=== PATIENT | female | born 1995 | race Caucasian/White ===

== ENCOUNTER 2017-01-22 23:31 | Emergency (ER) | payer OTHER ==
[~2017-01-22] VITALS: Ht 154.9 cm; Wt 65.1 kg
[2017-01-22 23:38] VITALS: TEMP 36.9; Ht 154.9 cm; Wt 65.1 kg
[2017-01-22] MEDS ORDERED: SODIUM CHLORIDE 0.9% 1000ML 1,000 ML IV STA (23:53)
[2017-01-22] MEDS ORDERED: SODIUM CHLORIDE 0.9% 1000ML 1,000 ML IV ONE (23:53)
--- NOTE | 2017-01-23 00:04 | EMERGENCY ROOM VISIT NOTE ---
History Report prepared by Yovana: Rob Hernandez Under the Supervision of: Dr. Guillaume Polanco M.D. First contact with patient: 23:44 Chief Complaint: OVERDOSE (ACCIDENTAL) Stated Complaint: TOOK TOO MUCH BUROPION,CHEST PAIN History of Present Illness The patient is a 21 year old female who presents to the Emergency Room with complaints of an accidental overdose that occurred about 3 days ago. The patient was drinking alcohol with her friends when she accidentally took 6 Bupropion 300 mg. Today, she started having a significant amount of chest pain. So, she called Poison Control and was told to come to the Emergency Room. She rates her pain a 5/10 in severity. She states it feels pressure like. She states that she was not trying to kill herself, she was just "drunk and not thinking." She took Ibuprofen the next day and she did not any other drugs or medications. The patient vomited yesterday, but her abdomen feels fine today. She takes Trazodone as needed, Spironolactone for high testosterone, and Bupropion for anxiety and Depression. The patient has cut herself in the past, but has not tried to hurt herself other than that. She has a therapist and states that it is helping. There is no chance she is . She denies any recent trauma. Source of History: patient, friend Onset: 3 days ago Position: other (global) Symptom Intensity: overdose Quality: other (accidental) Timing: constant Associated Symptoms: + chest pain, No abdominal pain, No vomiting Review of Systems See HPI for pertinent positives & negatives. A total of 10 systems reviewed and were otherwise negative. Past Medical & Surgical Medical Problems: (1) Anxiety (2) Depression Old medical records were reviewed. Nurse's notes were reviewed and I agree with. Depression. Denies history of suicidal ideations or attempt Family History Patient reports no known family medical history. Social History Smoking Status: Never Smoker Smokeless Tobacco Use: No Alcohol Use: occasionally Drug Use: none Marital Status: single Occupation Status: student Current/Historical Medications Scheduled Bupropion (Wellbutrin-Xl), 300 MG PO DAILY Spironolactone (Aldactone), 50 MG PO DAILY Scheduled PRN Trazodone Hcl (Trazodone), 50 MG PO HS PRN for Sleep Allergies Coded Allergies: No Known Allergies (Unverified , 01/22/17) Physical Exam Vital Signs Date Time Temp Pulse Resp B/P Pulse Ox O2 Delivery O2 Flow Rate FiO2 01/23/17 03:08 72 01/23/17 03:06 93 18 123/79 98 Room Air 01/23/17 01:06 69 18 120/74 95 Room Air 01/22/17 23:54 79 01/22/17 23:38 36.9 88 20 144/94 95 Room Air Physical Exam General: Non ill appearing young female. Well developed well nourished in no acute distress, breathing comfortably on room air. Normal speech HEENT: Normal cephalic atraumatic. Pupils are equal round and reactive to light. Extraocular movements are intact. Oropharynx is pink with moist mucous membranes. No swelling of the mouth lips or tongue. Neck: Supple with a midline trachea. No meningeal signs or stiffness, no JVD or bruits. No Stridor. Chest: Clear to auscultation bilaterally. No wheezes or rhonchi. No increased work of breathing. Heart: regular rate and rhythm. Abdomen: Soft nontender, nondistended without rebound guarding or rigidity. Extremities: No cyanosis clubbing or edema. No calf tenderness or assymetry Spine/Back. Non tender to palpation. No CVA tenderness Skin: Good turgor without rashes. Superficial cut on her left arm that is healed. Neurologic exam: Cranial nerves two through 12 are intact. Motor and sensation are intact and symmetrical throughout. Medical Decision & Procedures ER Provider Diagnostic Interpretation: Chest x-ray per my interpretation reveals no pneumothorax, failure, or infiltrate. Laboratory Results 01/22/17 23:56 Red Blood Count 4.49, Mean Corpuscular Volume 90.2, Mean Corpuscular Hemoglobin 32.3, Mean Corpuscular Hemoglobin Concent 35.8, Mean Platelet Volume 9.5, Neutrophils (%) (Auto) 61.2, Lymphocytes (%) (Auto) 26.6, Monocytes (%) (Auto) 10.0, Eosinophils (%) (Auto) 1.3, Basophils (%) (Auto) 0.3, Neutrophils # (Auto ) 5.86, Lymphocytes # (Auto) 2.55, Monocytes # (Auto) 0.96, Eosinophils # (Auto ) 0.12, Basophils # (Auto) 0.03 01/22/17 23:56 Test 01/22/17 23:56 01/23/17 00:03 01/23/17 00:04 01/23/17 00:17 White Blood Count 9.58 K/uL (4.8-10.8) Red Blood Count 4.49 M/uL (4.2-5.4) Hemoglobin 14.5 g/dL (12.0-16.0) Hematocrit 40.5 % (37-47) Mean Corpuscular Volume 90.2 fL (80-100) Mean Corpuscular Hemoglobin 32.3 pg (25-34) Mean Corpuscular Hemoglobin Concent 35.8 g/dl (32-36) Platelet Count 335 K/uL (130-400) Mean Platelet Volume 9.5 fL (7.4-10.4) Neutrophils (%) (Auto) 61.2 % Lymphocytes (%) (Auto) 26.6 % Monocytes (%) (Auto) 10.0 % Eosinophils (%) (Auto) 1.3 % Basophils (%) (Auto) 0.3 % Neutrophils # (Auto) 5.86 K/uL (1.4-6.5) Lymphocytes # (Auto) 2.55 K/uL (1.2-3.4) Monocytes # (Auto) 0.96 K/uL (0.11-0.59) Eosinophils # (Auto) 0.12 K/uL (0-0.5) Basophils # (Auto) 0.03 K/uL (0-0.2) RDW Standard Deviation 39.7 fL (36.4-46.3) RDW Coefficient of Variation 12.0 % (11.5-14.5) Immature Granulocyte % (Auto) 0.6 % Immature Granulocyte # (Auto) 0.06 K/uL (0.00-0.02) Prothrombin Time 10.5 SECONDS (9.0-12.0) Prothromb Time International Ratio 1.0 (0.9-1.1) Activated Partial Thromboplast Time 28.1 SECONDS (21.0-31.0) Partial Thromboplastin Ratio 1.1 Anion Gap 10.0 mmol/L (3-11) Est Creatinine Clear Calc Drug Dose 82.2 ml/min Estimated GFR () 100.6 Estimated GFR (Non- 86.8 BUN/Creatinine Ratio 18.2 (10-20) Calcium Level 9.0 mg/dl (8.5-10.1) Total Bilirubin 0.3 mg/dl (0.2-1) Direct Bilirubin < 0.1 mg/dl (0-0.2) Aspartate Amino Transf (AST/SGOT) 17 U/L (15-37) Alanine Aminotransferase (ALT/SGPT) 32 U/L (12-78) Alkaline Phosphatase 81 U/L (45-117) Total Protein 8.0 gm/dl (6.4-8.2) Albumin 4.2 gm/dl (3.4-5.0) Lipase 107 U/L (73-393) Thyroid Stimulating Hormone (TSH) 1.250 uIu/ml (0.300-4.500) Human Chorionic Gonadotropin, Qual NEG (NEG) Salicylates Level < 1.7 mg/dl (2.8-20) Acetaminophen Level < 2 ug/ml (10-30) Urine Opiates Screen NEG (NEG) Urine Methadone, Qualitative NEG (NEG) Urine Barbiturates NEG (NEG) Urine Phencyclidine (PCP) Level NEG (NEG) Ur Amphetamine/Methamphetamine NEG (NEG) MDMA (Ecstasy) Screen POS (NEG) Urine Benzodiazepines Screen NEG (NEG) Urine Cocaine Metabolite NEG (NEG) Urine Marijuana (THC) NEG (NEG) Bedside D-Dimer 153 ng/mlFEU (0-450) Bedside Troponin I 0.000 ng/ml (0-0.045) Ethyl Alcohol mg/dL < 3.0 mg/dl (0-3) Laboratory studies as stated above per my review. Medications Administered Medications (Trade) Dose Ordered Sig/Leonard Route Start Time Stop Time Status Last Admin Dose Admin Sodium Chloride 1,000 ml @ 999 mls/hr Q1H1M STAT IV 01/22/17 23:53 01/23/17 00:53 DC 01/23/17 00:09 999 MLS/HR Sodium Chloride (Nss 1000ml) 1,000 ml @ 150 mls/hr Q6H40M ONCE IV 01/22/17 23:53 01/23/17 04:26 DC 01/23/17 01:06 150 MLS/HR ECG Indication: chest pain Rate (beats per minute): 79 Rhythm: normal sinus Findings: no acute ischemic change, no ectopy, other (Normal intervals) ED Course 2344: Past medical records reviewed. The patient was evaluated in room A12, and a complete history and physical examination were performed. 2353: Sodium Chloride 1000 ml @ 150 mls/hr IV, Sodium Chloride 1000 ml @ 999 mls /hr IV 0320: I spoke with Raquel of Poison Control at this time. She agrees with the treatment plan to discharge the patient. 0326: Upon reevaluation, the patient is resting. I discussed the results and treatment plan with her. She verbalized agreement of the treatment plan. The patient was discharged home. Medical Decision Differentials include appellate court clerk process, arrhythmia, cardiac disease, pulmonary embolism, pneumothorax, and electrolyte or metabolic abnormality. The patient comes in as described above she had an overdose about 48 hours ago. She has some nausea vomiting yesterday now has some vague chest discomfort. She looks well on exam. IV access established and she was hydrated with IV normal saline. EKG does not suggest acute coronary syndrome or arrhythmia. Chest x-ray was unremarkable. She has nothing to suggest congestive heart failure, pneumonia, or pneumothorax. She's had no acute electrolyte or metabolic abnormalities. No acute toxicologic process seen. Her d-dimer is normal and in a low pretest probability setting, makes PE highly unlikely. She took approximate 6 Wellbutrin 48 hours ago and does not have any symptoms suggest Wellbutrin toxicity. I did run it by the [place] [facility] and talked to Sharon who agreed that she could go home. The patient has normal- appearing EKG and intervals. I do not think that she is suicidal or homicidal as she denies this. I had Stacy, case specialist, talk to her as well. The patient can follow up with her psychiatrist and return to ER if: Worsening of symptoms, thoughts of hurting herself or others, any new problems or concerns. She was happy with plan and discharged to home. Consults Time Called: [phone] Consulting Physician: Raquel - Poison Control Returned Call: [phone] We discussed the patient's case. Impression Primary Impression: Overdose Scribe Attestation The scribe's documentation has been prepared under my direction and personally reviewed by me in its entirety. I confirm that the note above accurately reflects all work, treatment, procedures, and medical decision making performed by me. Departure Information Dispostion Home / Self-Care Referrals No Doctor, Assigned (PCP) Forms HOME CARE DOCUMENTATION FORM, IMPORTANT VISIT INFORMATION, WORK / SCHOOL INSTRUCTIONS Patient Instructions My [facility] Additional Instructions Rest. Drink plenty of fluids. Do not take your medications differently than directed. Do not take any extra medications Return if: Worsening symptoms, shortness of breath, fever chills, any new problems concerns Follow-up with your doctor tomorrow for recheck
[2017-01-23 00:20] LABS: BASO % 0.3 %; BASO ABS # 0.03 K/uL (0-0.2); COMPLETE YES; EOS % 1.3 %; HEMATOCRIT 40.5 % (37-47); IG% 0.6 %; LYMPH % 26.6 %; LYMPH ABS # 2.55 K/uL (1.2-3.4); MEAN CELL VOLUME 90.2 fL (80-100); MEAN CORPUSCULAR HEMOGLOBIN 32.3 pg (25-34); MEAN CORPUSCULAR HGB CONC 35.8 g/dl (32-36); MEAN PLATELET VOLUME 9.5 fL (7.4-10.4); NEUT % 61.2 %; PLATELET COUNT 335 K/uL (130-400); RED BLOOD COUNT 4.49 M/uL (4.2-5.4); WHITE BLOOD COUNT 9.58 K/uL (4.8-10.8)
[2017-01-23] MEDS ORDERED: SPIR50TA2 PO (00:20)
[2017-01-23] MEDS ORDERED: TRAZ50TA35 PO (00:20)
[2017-01-23] MEDS ORDERED: BUPRTAB51 PO (00:20)
[2017-01-23 00:28] LABS: PARTIAL THROMBOPLASTIN RATIO 1.1; PROTHROMBIN TIME (PATIENT) 10.5 SECONDS (9.0-12.0)
[2017-01-23 00:43] LABS: PREG INTERNAL NEGATIVE QC NEG CLEAR BACKGROUND; PREG INTERNAL POSITIVE QC POS CONTROL LINE
[2017-01-23 00:48] LABS: BLOOD UREA NITROGEN 17 mg/dl (7-18); BUN/CREATININE RATIO 18.2 (10-20); CARBON DIOXIDE 27 mmol/L (21-32); CHLORIDE 104 mmol/L (98-107); CREATININE 0.95 mg/dl (0.60-1.20); GLUCOSE 90 mg/dl (70-99); POTASSIUM 3.4 mmol/L (3.5-5.1); SODIUM 141 mmol/L (136-145)
[2017-01-23 00:58] LABS: ACETAMINOPHEN < 2 ug/ml (10-30)
[2017-01-23 01:00] LABS: ALKALINE PHOSPHATASE 81 U/L (45-117); ALT/SGPT 32 U/L (12-78); AST/SGOT 17 U/L (15-37)
[2017-01-23 01:06] LABS: BENZODIAZEPINE, URINE NEG (NEG); COCAINE,URINE NEG (NEG); PHENCYCLIDINE, URINE NEG (NEG)
[2017-01-23 03:06] VITALS: BP 123/79; O2SAT 98
[2017-01-23 03:08] VITALS: PULSE 72
--- NOTE | 2017-01-23 06:59 | DIAGNOSTIC IMAGING REPORT ---
CHEST ONE VIEW PORTABLE CLINICAL HISTORY: CHEST PAIN dyspnea COMPARISON STUDY: No previous studies for comparison. FINDINGS: The bones soft tissues and hemidiaphragms are normal. The cardiomediastinal silhouette is normal. The lungs are clear. The pulmonary vasculature is normal. IMPRESSION: Negative chest. Electronically signed by: Steven Schumacher M.D. 01/23/2017 6:58 AM Dictated Date/Time: 01/23/2017 6:50 AM
== END 2017-01-23 03:35 | disposition home or self-care (01) ==
LOC: C.EDB 23:33 → C.EDA 01-23 03:35
DX: T43.291A Poisoning by other antidepressants, accidental (unintentional), initial encounter (principal); F41.9 Anxiety disorder, unspecified; F32.9 Major depressive disorder, single episode, unspecified